=== PATIENT | female | born 1960 | race Caucasian/White ===

== ENCOUNTER → 2019-07-17 | Outpatient (CLI) | payer BC ==
--- NOTE | 2019-07-17 11:16 | RAD ---
Indication:Bilateral hand pain the bony lesion. TECHNIQUE: 3 views of bilateral hand and 3 views of the right elbow COMPARISON: None FINDINGS: Elbow: No acute fracture or dislocation. No joint effusion. Mild osteoarthritis. Left hand: Moderate first MCP joint osteoarthritis. Erosive osteoarthritis seen of the DIP joint of the third finger with soft tissue swelling. Mild first CMC joint osteoarthritis. Right hand: Moderate first CMC joint osteoarthritis. Mild first MCP joint also arthritis. Erosive osteoarthritis seen of the DIP joint of the second finger. IMPRESSION: As above. Electronically signed by: Sha Duff DO (07/17/2019 11:13 AM) [facility]
--- NOTE | 2019-07-17 11:16 | RAD ---
Indication:Bilateral hand pain the bony lesion. TECHNIQUE: 3 views of bilateral hand and 3 views of the right elbow COMPARISON: None FINDINGS: Elbow: No acute fracture or dislocation. No joint effusion. Mild osteoarthritis. Left hand: Moderate first MCP joint osteoarthritis. Erosive osteoarthritis seen of the DIP joint of the third finger with soft tissue swelling. Mild first CMC joint osteoarthritis. Right hand: Moderate first CMC joint osteoarthritis. Mild first MCP joint also arthritis. Erosive osteoarthritis seen of the DIP joint of the second finger. IMPRESSION: As above. Electronically signed by: Sha Duff DO (07/17/2019 11:13 AM) [facility]
== END | disposition home or self-care (01) ==
LOC: DXRAD 09:03
PROVIDERS: ATTEND Family Medicine
DX: M19.041 Primary osteoarthritis, right hand (principal); M19.042 Primary osteoarthritis, left hand; M79.89 Other specified soft tissue disorders
CPT/HCPCS: 73080; 73130